=== PATIENT | female | born 1940 | race Caucasian/White ===

== ENCOUNTER 2021-09-03 08:00 | Outpatient (CLI) | payer MEDICARE, OTHER ==
--- NOTE | 2021-09-03 14:45 | XRAY Report ---
PROCEDURE: Wrist 4 View RT INDICATIONS: SPRAIN OF RIGHT WRIST TECHNIQUE: 4 views of the wrist were acquired. COMPARISON: None FINDINGS: Bones: There is a minimally displaced slightly impacted fracture of the distal radius. No suspicious bony lesions. Scaphoid view: No visualized fracture. Soft tissues: No suspicious soft tissue calcifications. IMPRESSION: Slightly impacted distal radial fracture without definitive intra-articular extension. Reviewed by: Loly Begum MD on 09/03/2021 2:44 PM PST Approved by: Loly Begum MD on 09/03/2021 2:44 PM PST Station ID: [id number]
== END 2021-09-03 23:59 | disposition home or self-care (01) ==
LOC: DI.S 08:00
PROVIDERS: ATTEND Emergency Medicine
DX: S52.501A Unspecified fracture of the lower end of right radius, initial encounter for closed fracture (principal)

== ENCOUNTER 2021-09-17 14:47 | Outpatient (CLI) | payer MEDICARE, OTHER ==
--- NOTE | 2021-09-17 16:15 | XRAY Report ---
PROCEDURE: Wrist 3 View RT INDICATIONS: FRACTURE OF LOWER END OF RIGHT RADIUS TECHNIQUE: 3 views of the wrist were acquired. COMPARISON: 09/03/2021 FINDINGS: Bones:. Noted is slightly impacted intra-articular distal radial fracture not significantly changed i n appearance compared to prior study. No new fracture or dislocation. Wrist alignment is anatomic. No suspicious bony lesions. Scaphoid view: Scaphoid is grossly intact. Soft tissues: No suspicious soft tissue calcifications. IMPRESSION: Nondisplaced impacted intra-articular fracture of distal radius unchanged in alignment from prior helder dy. No new fracture. Reviewed by: Jose Elias Price MD on 09/17/2021 4:14 PM PST Approved by: Jose Elias Price MD on 09/17/2021 4:14 PM PST Station ID: [id number]
== END 2021-09-17 14:48 | disposition home or self-care (01) ==
LOC: DI.WOS 14:47
PROVIDERS: ATTEND Physician Assistant
DX: S52.571A Other intraarticular fracture of lower end of right radius, initial encounter for closed fracture (principal)

== ENCOUNTER 2021-10-09 07:58 | Outpatient (CLI) | payer MEDICARE, OTHER ==
--- NOTE | 2021-10-09 12:04 | XRAY Report ---
PROCEDURE: Wrist 3 View RT INDICATIONS: F/U WRIST FX TECHNIQUE: 3 views of the wrist were acquired. COMPARISON: 09/17/2021, 09/03/2021 FINDINGS: Bones: Healing fracture of the distal radius with sclerosis is seen. Degenerative changes of the carp al bones, especially the triscaphe joint are unchanged. Soft tissues: No suspicious soft tissue calcifications. IMPRESSION: Nondisplaced impacted fracture of the distal radius, unchanged compared to the prior study. Reviewed by: Favio Pedersen on 10/09/2021 12:03 PM PST Approved by: Favio Pedersen on 10/09/2021 12:03 PM PST Station ID: [id number]
== END 2021-10-09 07:59 | disposition home or self-care (01) ==
LOC: DI.WOS 07:58
PROVIDERS: ATTEND Physician Assistant
DX: S63.591A Other specified sprain of right wrist, initial encounter (principal); S52.501D Unspecified fracture of the lower end of right radius, subsequent encounter for closed fracture with routine healing

== ENCOUNTER 2021-10-30 14:35 | Outpatient (CLI) | payer MEDICARE, OTHER ==
--- NOTE | 2021-10-30 16:54 | XRAY Report ---
PROCEDURE: Wrist 3 View RT INDICATIONS: WRIST FRACTURE TECHNIQUE: 3 views of the wrist were acquired. COMPARISON: October 09, 2021 FINDINGS: BONES: Slightly less prominent sclerosis of the distal radius, which may reflect ongoing healing. No distinct fracture line is appreciated. The carpal bones are normally aligned. Background osteophytic change noted. SOFT TISSUES: No focal abnormality. IMPRESSION: 1.Less prominent sclerosis of the distal radius, which may reflect ongoing healing. Reviewed by: Slava Marroquin MD on 10/30/2021 4:52 PM PST Approved by: Slava Marroquin MD on 10/30/2021 4:52 PM PST Station ID: [id number]
== END 2021-10-30 14:36 | disposition home or self-care (01) ==
LOC: DI.WOS 14:35
PROVIDERS: ATTEND Physician Assistant
DX: S52.571D Other intraarticular fracture of lower end of right radius, subsequent encounter for closed fracture with routine healing (principal)